=== PATIENT | female | born 1955 ===

== ENCOUNTER 2024-08-27 06:15 | Day surgery (SDC) | payer OTHER, SELFPAY ==
[2024-08-27 08:26] VITALS: BMI 25.9
[2024-08-27 08:29] VITALS: BMI 25.9
[2024-08-27 08:40] VITALS: BP 176/98
[2024-08-27 10:06] VITALS: BP 133/79
[2024-08-27 10:15] VITALS: BP 129/85
[2024-08-27 10:30] VITALS: BP 138/79
== END 2024-08-27 10:52 | disposition home or self-care (01) ==
LOC: GI 06:15
PROVIDERS: ATTENDING PHYSICIAN Internal Medicine Gastroenterology
DX: K86.2 Cyst of pancreas (principal)
CPT/HCPCS: 43242; 88173

== ENCOUNTER 2024-08-29 13:43 | Inpatient (IN) | payer OTHER, SELFPAY ==
[2024-08-27 15:55] VITALS: BP 159/108
--- NOTE | 2024-08-27 15:59 | ED.GENMED ---
ED Provider Triage
<Gloria Vences NP - Last Filed: 08/27/24 16:03>
-
Patient seen by provider in Triage?: Seen in Triage
Attestation: A medical screening examination has been initiated by a qualified medical provider. Based on the assessment performed at this time, it has been determined that an emergent medical condition may exist and the patient has been informed
that further medical evaluation and possible additional diagnostic testing may be needed.
HPI: 68-year-old female here for earlier abdominal pain 03/31, now 01/29
This 9 AM patient had an endoscopic ultrasound for cyst on her pancreas. Afterwards she felt fine but when she got home she developed mid abdominal pain. Feels bloated, states some of it feels muscular like I did 100 sit ups.
GENERAL: Alert , in no apparent distress
EYE: No visual abnormalities.
NECK: Trachea midline
ENT: No visible abnormalities.
LUNGS: No acute respiratory distress
NEUROLOGICAL: Alert and oriented
SKIN: Skin intact. No visible changes.
MUSCULOSKELETAL: Moving extremities normally
PSYCH: Normal and appropriate interaction.
This is a medical evaluation conducted in person to initiate diagnostic evaluation and provide initial therapeutics. Please see further documentation by the treating clinician.
History of Present Illness
<Gloria Vences STORE CLERK CASHIER - Last Filed: 08/27/24 16:03>
General
Chief Complaint: Abdominal Pain
Time Seen by Provider: 08/27/24 19:48
<BRENDA Shelby - Last Filed: 08/27/24 23:30>
General
Source: patient
Exam Limitations: none
History of Present Illness
History of Present Illness:
This is a 68 year old female that comes in with c/o abd pain. States that she has Endoscopic Ultrasound today to help decide what was going on with her Pancreas. States that she had good news. States that she eat crackers and went home. States that
she decided to have some dry cereal at lunch and when she did she started with cramping abd pain. Sates that at 2:30pm it felt like she had done 300 sit ups or like she had gas that she couldn't get rid off. States that her pain is about 4-5/10 at
this time. States that she was nauseated and mild dizziness when she first got home. Denies any fever, chills, chest pain, SOB, vomiting, diarrhea, headache, urinary burning.
Past History
<BRENDA Shelby - Last Filed: 08/27/24 23:30>
Past History
ED Past Medical History: HTN, Hypercholesterolemia and Other (Cyst on Pancreas. Barretts)
ED Past Surgical History: Tonsilectomy and Other (Cataracts, Breast Biopsy)
Social History
Tobacco: Non-smoker
Alcohol: Occasional
Personal:
Living: with family
Review of Systems
<BRENDA Shelby - Last Filed: 08/27/24 23:30>
Review of Systems
All Other Systems: ROS reviewed and negative except as documented in HPI and ROS
Constitutional: Reports no symptoms; Denies fever or chills
EENT: Reports no symptoms
Respiratory: Reports no symptoms; Denies cough or trouble breathing
Cardiac: Reports no symptoms; Denies chest pain
ABD/GI: Reports abdominal pain and nausea; Denies vomiting or diarrhea
: Reports no symptoms; Denies dysuria, frequency or urgency
Musculoskeletal: Reports no symptoms
Skin: Reports no symptoms
Neurological: Reports dizzy (Mild); Denies headache
Psychiatric: Reports no symptoms
Phy Exam
<BRENDA Shelby - Last Filed: 08/27/24 23:30>
General Physical Exam
General Presentation: well appearing and no apparent distress
General age: appears stated age
General Skin: warm and dry
General Habitus: normal
General Mental: alert
General Hydration: appears well hydrated
ENT Exam
ENT Exam: TM's normal, pharynx normal and neck supple
Eye Exam
Eye Exam: EOMI
Cardiovascular Exam
Cardiovascular Exam: regular rate/rhythm, no edema, no murmur and normal peripheral pulses
Pulmonary Exam
Pulmonary Exam: lungs clear, no respiratory distress, no rales, chest non tender, no crackles, no rhonchi, no wheezing and no cough
Gastrointestinal Exam
Gastrointestinal Exam: soft, no organomegaly, no pulsatile mass, non distended, tender (Epigastric and right upper quadrant with palpation) and other (Hypoactive bowel sounds)
Musculoskeletal Exam
Musculoskeletal Exam: full ROM and no edema
Skin Exam
Skin Exam: normal color, warm/dry, no rash and no petechia
Psychiatric Exam
Psychiatric Exam: normal mood/affect
Course
<Gloria Vences NP - Last Filed: 08/27/24 16:03>
Orders/Labs/Results
Orders:
Orders
08/27/24 16:07
Complete Blood Count/With Diff Urgent
Comprehensive Metabolic Panel Urgent
Lipase Urgent
08/27/24 20:01
CT Abd/pelvis W Iv Cont Urgent
Comment: Endoscopic US today
Reason For Exam: Upper abd pain,
0.9% Sodium Chloride 1000 ml [Nss] 1,000 ml IV BOLUS
08/27/24 20:21
Lactic Acid Urgent
08/27/24 23:23
HYDROmorphone [Dilaudid] 0.5 mg IV NOW STA
Ondansetron Injectable [Zofran] 4 mg IV NOW STA
Abnormal Lab Results
08/27/24
16:07
WBC 18.3 H 10^3/uL
(4.8-10.8)
MCH 31.1 H pg
(27.0-31.0)
Abs Immat Gran (auto) 0.1 H 10^3/uL
(0-0.05)
Absolute Neuts (auto) 15.6 H 10^3/uL
(1.4-6.5)
Absolute Monos (auto) 0.9 H 10^3/uL
(0.1-0.6)
Neutrophils % 85.4 H %
(42.2-75.2)
Lymphocytes % 8.7 L %
(20.5-51.1)
Carbon Dioxide 32 H mmol/L
(22-30)
BUN 20 H mg/dl
(7-17)
Glucose 114 H mg/dl
(70-99)
Lipase > 4000 H* U/L
(23-300)
08/27/24 16:07
08/27/24 16:07
Vital Signs
Initial and Last Documented VS:
Initial Vital Signs
Temp Pulse Resp BP Pulse Ox
98.2 F 116 16 159/108 97
08/27/24 15:55 08/27/24 15:55 08/27/24 15:55 08/27/24 15:55 08/27/24 15:55
Last Documented Vital Signs
Temp Pulse Resp BP Pulse Ox
98.2 F 110 18 145/89 97
08/27/24 15:55 08/27/24 23:00 08/27/24 23:00 08/27/24 23:00 08/27/24 23:00
<BRENDA Shelby - Last Filed: 08/27/24 23:30>
Orders/Labs/Results
Orders:
Orders
08/27/24 16:07
Complete Blood Count/With Diff Urgent
Comprehensive Metabolic Panel Urgent
Lipase Urgent
08/27/24 20:01
CT Abd/pelvis W Iv Cont Urgent
Comment: Endoscopic US today
Reason For Exam: Upper abd pain,
0.9% Sodium Chloride 1000 ml [Nss] 1,000 ml IV BOLUS
08/27/24 20:21
Lactic Acid Urgent
08/27/24 23:23
HYDROmorphone [Dilaudid] 0.5 mg IV NOW STA
Ondansetron Injectable [Zofran] 4 mg IV NOW STA
Abnormal Lab Results
08/27/24
16:07
WBC 18.3 H 10^3/uL
(4.8-10.8)
MCH 31.1 H pg
(27.0-31.0)
Abs Immat Gran (auto) 0.1 H 10^3/uL
(0-0.05)
Absolute Neuts (auto) 15.6 H 10^3/uL
(1.4-6.5)
Absolute Monos (auto) 0.9 H 10^3/uL
(0.1-0.6)
Neutrophils % 85.4 H %
(42.2-75.2)
Lymphocytes % 8.7 L %
(20.5-51.1)
Carbon Dioxide 32 H mmol/L
(22-30)
BUN 20 H mg/dl
(7-17)
Glucose 114 H mg/dl
(70-99)
Lipase > 4000 H* U/L
(23-300)
08/27/24 16:07
08/27/24 16:07
Leukocytosis, Dehydration. hyperglycemia. Lipase >4000
Vital Signs
Initial and Last Documented VS:
Initial Vital Signs
Temp Pulse Resp BP Pulse Ox
98.2 F 116 16 159/108 97
08/27/24 15:55 08/27/24 15:55 08/27/24 15:55 08/27/24 15:55 08/27/24 15:55
Last Documented Vital Signs
Temp Pulse Resp BP Pulse Ox
98.2 F 110 18 145/89 97
08/27/24 15:55 08/27/24 23:00 08/27/24 23:00 08/27/24 23:00 08/27/24 23:00
<BRENDA Shelby - Last Filed: 08/27/24 23:30>
MDM/Problems Addressed
Differential Diagnosis Includes:
Pancreatitis, Abd perforation
MDM/Problems Addressed:
This is a 68 year old female that comes in with c/o abd pain after having an Endoscopy US today to look at the Cyst on her Pancreas. States that she got good news. States that she started with abd pain after getting home.
Will get labs, CT scan.
Back into see patient. Explained that she has Pancreatitis. Will admit patient. Hospitalist notified.
Chronic conditions affecting care:
NA
Acute Exacerbation and/or Progression of Chronic Illness:
NA
<BRENDA Shelby - Last Filed: 08/27/24 23:30>
*Radiology
Radiology exam reviewed: radiology read reviewed (CT-Mild pancreatitis. Homogeneous pancreatic parencymal enhancement. 2.4cm cyst at the superior margin of the pancreatic head. There area a few tiny nonobstructing renal calculi, bilaterally. Few
small parapelvic cysts. No obstructing uropathy. Minor diverticulosis. NO evidence of acute ) and other (CT cont- diverticulitis. Mild colonic fecal burden. No evidence of bowel obstruction. Bibasilar atelectasis. )
*Pulse Oximetry
Patient hypoxic: no
*EKG
Interpreted by ED Provider?: NA
Rate: EKG- N/A
*Home School Liaison Officer Interpretation
Rate: Home School Liaison Officer- N/A
*Critical Care Note
Total Time (30-74mins, 75-104mins- exclusive of procedures): Not Applicable
ED Attending Note
<Gloria Vences STORE CLERK CASHIER - Last Filed: 08/27/24 16:03>
-
Portions of this chart may have been created with voice recognition software.� Occasional wrong word or��sound alike� substitutions may have occurred due to the inherent limitations of voice recognition software.
Discharge Plan
Departure
Patient Disposition: Admit
Date of Disposition: 08/27/24
Time of Disposition: 23:29
Admit to: Med/Surg
Presentation/result/management discussed w/ accepting MD/DO: Hospitalist
Patient with high blood pressure during this ER visit?: Yes
Condition: Good
Covid-19: Not Applicable
Discharge Problem:
Pancreatitis, acute
Prescriptions:
No Action
multivitamin Tablet
1 tab PO DAILY
calcium 600 mg Capsule
1,200 mg PO DAILY
valsartan 80 mg Tablet
80 mg PO DAILY
biotin 10,000 mcg Capsule
10,000 mcg PO DAILY
omeprazole 20 mg Capsule,Delayed Release(Dr/Ec)
20 mg PO DAILY
loratadine 10 mg Tablet
10 mg PO DAILY
omega 8-zzx-mpg-fish oil [Fish Oil] 1,000 (120-180) mg Capsule
1 cap PO DAILY
aspirin 81 mg Capsule
81 mg PO DAILY
Referrals:
Maria Chanrda DO [Family Provider] -
Interventions
Interventions:
*Risk Screen - Suicide Last Done: 08/27/24 20:41
*Neglect/Abuse Screening Last Done: 08/27/24 20:41
ED- Fall Risk Assessment Last Done: 08/27/24 20:41
*ED COVID-19 Vaccine History Last Done: 08/27/24 20:41
PZ-Yxmgai-Enpxbpjmxs Assessment Last Done: 08/27/24 20:38
Discharge Date and Time
Print Language: EMIRATI
[2024-08-27 16:14] LABS: % Basophils 0.4 % (0-2); % Eosinophils 0.4 % (0-6); % Immature Granulocytes 0.4 % (0-0.5); % Lymphocytes 8.7 % (20.5-51.1); % Monocytes 4.7 % (1.7-9.3); % Neutrophils 85.4 % (42.2-75.2); Absolute Basophils 0.1 10^3/uL (0-0.2); Absolute Eosinophils 0.1 10^3/uL (0-0.7); Absolute Immature Granulocytes 0.1 10^3/uL (0-0.05); Absolute Lymphocytes 1.6 10^3/uL (1.2-3.4); Absolute Monocytes 0.9 10^3/uL (0.1-0.6); Absolute Neutrophils 15.6 10^3/uL (1.4-6.5); Hematocrit 42.3 % (37.0-47.0); Hemoglobin 14.7 g/dL (12.0-16.0); Mean Corp Hgb Conc. 34.8 g/dL (33.0-37.0); Mean Corpuscular Hgb 31.1 pg (27.0-31.0); Mean Corpuscular Volume 89.6 fL (81.0-99.0); Mean Platelet Volume 9.2 fL (7.4-10.4); Nucleated Red Blood Cells % 0 %; Platelet Count 374 10^3/uL (130-400); Red Blood Cell Count 4.72 10^6/uL (4.20-5.40); Red Cell Dist. Width 11.9 % (11.5-14.5); White Blood Cell Count 18.3 10^3/uL (4.8-10.8)
[2024-08-27 16:34] LABS: ALT (SGPT) 26 U/L (0-35); AST (SGOT) 31 U/L (14-36); Albumin 4.7 g/dl (3.5-5.0); Alkaline Phosphatase 77 U/L (38-126); Blood Urea Nitrogen 20 mg/dl (7-17); Calcium 10.1 mg/dl (8.4-10.2); Carbon Dioxide 32 mmol/L (22-30); Chloride 102 mmol/L (98-107); Glucose 114 mg/dl (70-99); Potassium 4.1 mmol/L (3.5-5.1); Sodium 142 mmol/L (135-145); Total Bilirubin 0.6 mg/dl (0.2-1.3); Total Protein 7.3 g/dl (6.3-8.2); eGFR > 60.00
[2024-08-27 18:46] VITALS: BP 153/95
[2024-08-27 20:05] LABS: Lipase > 4000 U/L (23-300)
[2024-08-27] MEDS: NSS 1000 IV (20:30)
[2024-08-27 20:34] VITALS: BP 154/77
[2024-08-27 20:50] LABS: Lactic Acid 1.7 mmol/L (0.7-2.0)
[2024-08-27 23:00] VITALS: BP 145/89
[2024-08-27] MEDS: DILAUDID 0.5 MG IV (23:24)
[2024-08-27] MEDS: ZOFRAN 4 MG IV (23:24)
--- NOTE | 2024-08-28 00:04 | HPS.HSE ---
Family Physician
-
Family Physician: Maria Chandra
Chief Complaint
-
Acute abdominal pain
History of Present Illness
This is a 68-year-old female who has a past medical history of hypertension, GERD, recent diagnosis of IPMN status post EGD and EUS with fine-needle aspiration of pancreatic cyst today coming in with acute onset of epigastric abdominal pain at
around 1 PM.
Patient reported that she underwent the procedure without any issues in the morning. When she arrived home she attempted to eat a dry cereal and developed severe epigastric abdominal pain radiating to the back. She said the pain was a 7 out of 10.
She had nausea but no vomiting. She denies any diarrhea. Patient called physician who recommended she come to the emergency department. On arrival in the emergency department the pain was a 5 out of 10. She denies any alcohol use. She denies
history of gallstones. She denies any prior episodes of pancreatitis.
In the ED she was afebrile, blood pressure was stable and she was nontachycardic. She had leukocytosis to 18,000 but otherwise CBC was unremarkable. Her electrolytes BUN/creatinine were within normal limits. Lipase was elevated at over 4000.
LFTs were within normal limits. CT of the abdomen pelvis showed mild pancreatitis, 2.4 cm cyst around the head of the pancreas. Otherwise no peripancreatic fluids. No other acute findings.
Medical History
Past Medical History
Past Medical History: Reports GERD and HTN
Additional Past Medical History:
Pancreatic IPMN
Past Surgical History: Reports None
Social History
Tobacco: Non-smoker
Alcohol: Occasional
Drug: None
Personal:
Living: With Family
Employment: Retired
Family History
Family History: Not pertinent
Allergies / Home Medications
Allergies reflects when Allergies were last updated in [employer].
Home Medications with original date entered in [employer]
Allergy/Medication List:
Allergies
Allergy/AdvReac Type Severity Reaction Status Date / Time
No Known Allergies Allergy Unverified 08/27/24 08:29
Home Medications
aspirin 81 mg capsule 81 mg PO DAILY 08/27/24
biotin 10,000 mcg capsule 10,000 mcg PO DAILY 08/27/24
calcium carbonate (Calcium 600) 1,200 mg PO DAILY 08/27/24
loratadine 10 mg tablet 10 mg PO DAILY 08/27/24
multivitamin 1 tab PO DAILY 08/27/24
omega 6-vmu-sxu-fish oil 1,000 mg (120 mg-180 mg) capsule (Fish Oil) 1 cap PO DAILY 08/27/24
omeprazole 20 mg capsule,delayed release 20 mg PO DAILY 08/27/24
valsartan 80 mg tablet 80 mg PO DAILY 08/27/24
Review of Systems
-
History Source: Patient
Constitutional: Reports No Symptoms
EENT: Reports No Symptoms
Respiratory: Reports No Symptoms
Abdomen/GI: Reports Abdominal Pain
: Reports No Symptoms
Musculoskeletal: Reports No Symptoms
Skin: Reports No Symptoms
Neurological: Reports No Symptoms
Endocrine: Reports No Symptoms
Hematologic/Lymphatic: Reports No Symptoms
Psych: Reports No Symptoms
Physical Exam
Vital Signs
Vital Signs
Temp Pulse Resp BP Pulse Ox
98.2 F 110 18 145/89 97
08/27/24 15:55 08/27/24 23:00 08/27/24 23:00 08/27/24 23:00 08/27/24 23:00
Physical Exam
General: Well Developed, Well Nourished, Comfortable and Conversant
HEENT: NormoCephalic, Anicteric, Moist mucous membranes and Atraumatic
Respiratory: Clear
Cardiac: S1/S2 and Regular Rhythm
GI: Soft, Non Distended, Normal Bowel Sounds and Tender
Rectal: Deferred by Provider
Genito-urinary: Deferred by me
Musculoskeletal: No Clubbing, No Cyanosis and No Edema
Skin: Warm and Dry
Neuro: AO x 3
Hematologic/Lymphatic: No Lymphadenopathy
Psych: Calm
Laboratory Results
-
08/27/24 16:07
08/27/24 16:07
Laboratory Results
Lactic Acid 1.7 mmol/L (0.7-2.0) 08/27/24 20:21
Total Bilirubin 0.6 mg/dl (0.2-1.3) 08/27/24 16:07
AST 31 U/L (14-36) 08/27/24 16:07
ALT 26 U/L (0-35) 08/27/24 16:07
Alkaline Phosphatase 77 U/L (38-126) 08/27/24 16:07
Lipase > 4000 U/L (23-300) H* 08/27/24 16:07
Data Reviewed
-
CT Scan: Report Reviewed by me
Lab Data: Labs Reviewed by me
Old Records: Reviewed
Impression/Plan
-
IMPRESSION:
Patient with history of IPMN and pancreatic cyst who underwent EGD and EUS status post fine-needle aspiration of the pancreatic cyst presents to the emergency department status post procedure with acute episode of epigastric pain occurring after
attempted oral intake at home. Found to have a lipase of over 5000. LFTs within normal limits. Labs otherwise unremarkable except for leukocytosis to 18,000. CT scan of the abdomen pelvis showed mild pancreatitis
PLAN:
1. Post EUS pancreatitis - HD stable and non-toxic appearing. Leukocytosis
- admit to med/surg observation
- npo for now
- iv fluids, pain control and antiemetics
- continue cipro as prescribed s/p procedure 250mg bid, iv for now
- given s/p procedure and leukocytosis, will get GI consultation
- continue ppi as iv for now
2. HTN
- continue valsartan
DVT PPX - lovenox sq
Code status - Full Code
[2024-08-28 01:20] VITALS: BP 143/79; BMI 26.2
[2024-08-28] MEDS: LR 1000 IV ×3 (01:39→21:25)
[2024-08-28] MEDS: DILAUDID 0.5 MG IV ×2 (03:38→08:41)
[2024-08-28 07:30] VITALS: BP 108/60
[2024-08-28 07:38] LABS: Hematocrit 36.7 % (37.0-47.0); Hemoglobin 12.3 g/dL (12.0-16.0); Mean Corp Hgb Conc. 33.5 g/dL (33.0-37.0); Mean Corpuscular Hgb 30.9 pg (27.0-31.0); Mean Corpuscular Volume 92.2 fL (81.0-99.0); Mean Platelet Volume 9.4 fL (7.4-10.4); Platelet Count 315 10^3/uL (130-400); Red Blood Cell Count 3.98 10^6/uL (4.20-5.40); Red Cell Dist. Width 11.9 % (11.5-14.5); White Blood Cell Count 11.9 10^3/uL (4.8-10.8)
[2024-08-28 07:43] LABS: Blood Urea Nitrogen 16 mg/dl (7-17); Carbon Dioxide 27 mmol/L (22-30); Chloride 106 mmol/L (98-107); Estimated Creatinine Clearance 48 ml/min; Glucose 114 mg/dl (70-99); Potassium 3.9 mmol/L (3.5-5.1); Sodium 142 mmol/L (135-145); eGFR > 60.00
--- NOTE | 2024-08-28 08:36 | CON.GI ---
Consultation
-
Date/Time Consultation Requested: 08/28/24
Date/Time Consultation Performed: 08/28/24
Requesting Provider:
Performing Provider:
Reason for Consultation: post EUS pancreatitis
Medical History
Chief Complaint / HPI
Chief Complaint: epigastric pain
History of Present Illness:
This is a 68-year-old female with past medical history of GERD with reflux esophagitis, Arias's esophagus, colon polyps, pancreatic cyst, hypertension who follows up with Dr. Fer [place] at [facility] was referred to Dr. Rubio for an incidental
finding of pancreatic cyst. She says that she was getting CAT scan for follow-up after pneumonia and was noted to have a pancreatic cyst and was referred for EUS which she underwent yesterday with Dr. Rubio EUS with FNA and felt okay after the
procedure but when she went home she tried to eat some dry cereal and started having epigastric pain with nausea and presented to the emergency room and was noted to have normal LFTs but her lipase was greater than 4000 and was admitted for post EUS
pancreatitis. Today her pain is slightly improved no vomiting no fever. She usually has regular bowel movements no rectal bleeding or melena. Her reflux is pretty well-controlled on omeprazole 20 mg daily her last endoscopy was in March and her
last colonoscopy was in 2022 in [place].
Past Medical History
Past Medical History: Other (GERD, barretts, pancreatic cyst, colon polyps, HTN, PNA)
Past Surgical History: Other (none)
Social History
Tobacco: Non-Smoker
Alcohol: Occasional
Drug: None
Personal:
Living: With Family
Employment: Retired
Family History
Family History: Other (mom and dad - colon polyps, no FH of colon or pancreatic cancer)
Allergies / Home Medications
Allergy/AdvReac Type Severity Reaction Status Date / Time
No Known Allergies Allergy Unverified 08/27/24 08:29
�Medication �Instructions �Recorded
aspirin 81 mg capsule 81 mg PO DAILY 08/27/24
biotin 10,000 mcg capsule 10,000 mcg PO DAILY 08/27/24
calcium carbonate (Calcium 600) 1,200 mg PO DAILY 08/27/24
loratadine 10 mg tablet 10 mg PO DAILY 08/27/24
multivitamin 1 tab PO DAILY 08/27/24
omega 2-qak-gfc-fish oil 1,000 mg 1 cap PO DAILY 08/27/24
(120 mg-180 mg) capsule (Fish Oil)
omeprazole 20 mg capsule,delayed 20 mg PO DAILY 08/27/24
release
valsartan 80 mg tablet 80 mg PO DAILY 08/27/24
Review of Systems
-
All other systems: A 12 pt ROS was Negative except as stated above in HPI
Vital Signs
Temp Pulse Resp BP Pulse Ox
99.0 F 110 20 143/79 94
08/28/24 01:20 08/28/24 01:20 08/28/24 01:20 08/28/24 01:20 08/28/24 01:20
Physical Exam
Exam
General: No Apparent Distress
HEENT: Normocephalic
Respiratory: Clear
Cardiac: S1/S2 and Regular Rhythm
GI: Soft, Non Distended, Normal Bowel Sounds and Tender (epigastric)
Musculoskeletal: No Clubbing
Neuro: Awake, Alert and Oriented
Psych: Calm
Results
WBC 11.9 10^3/uL (4.8-10.8) H 08/28/24 06:52
Hgb 12.3 g/dL (12.0-16.0) 08/28/24 06:52
Hct 36.7 % (37.0-47.0) L 08/28/24 06:52
MCV 92.2 fL (81.0-99.0) 08/28/24 06:52
Plt Count 315 10^3/uL (130-400) 08/28/24 06:52
Absolute Neuts (auto) 15.6 10^3/uL (1.4-6.5) H 08/27/24 16:07
Sodium 142 mmol/L (135-145) 08/28/24 06:52
Potassium 3.9 mmol/L (3.5-5.1) 08/28/24 06:52
Chloride 106 mmol/L (98-107) 08/28/24 06:52
Carbon Dioxide 27 mmol/L (22-30) 08/28/24 06:52
BUN 16 mg/dl (7-17) 08/28/24 06:52
Creatinine 0.9 mg/dL (0.6-1.0) 08/28/24 06:52
Calcium 9.0 mg/dl (8.4-10.2) 08/28/24 06:52
Total Bilirubin 0.6 mg/dl (0.2-1.3) 08/27/24 16:07
AST 31 U/L (14-36) 08/27/24 16:07
ALT 26 U/L (0-35) 08/27/24 16:07
Alkaline Phosphatase 77 U/L (38-126) 08/27/24 16:07
Lipase > 4000 U/L (23-300) H* 08/27/24 16:07
Diagnostic Image Results:
08/27/24 CT IMPRESSION:
Mild pancreatitis. Homogeneous pancreatic parenchymal enhancement.
2.4 cm cyst at the superior margin of the pancreatic head.
There are a few tiny nonobstructing renal calculi, bilaterally. Few small parapelvic cysts. No obstructive uropathy.
Minor diverticulosis. No evidence of acute diverticulitis. Mild colonic fecal burden. No evidence of bowel obstruction.
Bibasilar atelectasis.
Prior GI Procedures:
EGD: March 2024 [place] Barretts per patient
Colonoscopy: 2022 colon polyps per patient
08/27/24 EUS
Impression: - A cystic lesion was seen in the pancreatic body.
Fine needle aspiration for fluid performed.
- There was no sign of significant pathology in the
pancreatic head.
- There was no sign of significant pathology in the
common bile duct.
- There was no sign of significant pathology in the
ampulla.
- There was no evidence of significant pathology in
the left lobe of the liver.
Assessment / Plan
-
1. Post EUS pancreatitis improving on IV fluids she is tachycardic will increase the rate and follow-up on labs. As described above she had a pancreatic cyst and had EUS with FNA yesterday will follow-up on results and she was recommended repeat
MRI in 1 year with her GI [address]. Monroe at [place] and she will follow-up with Dr. Rubio also. If her pain improves tomorrow we can advance diet will start clear liquids today
2. GERD with esophagitis and Arias's esophagus continue PPI
3. History of colon polyps last colonoscopy was in 2022 and needs repeat in 2027 will follow-up with her GI at [facility] at [place] Dr. Monroe
-
-
Thank you for consultation and allowing me to participate in the patient's care. Please call the design consultant GI physician during the after hours with any questions or concerns.
[2024-08-28] MEDS: PROTONIX IV 40 MG IV (09:47)
[2024-08-28] MEDS: DIOVAN 80 MG PO (09:47)
[2024-08-28] MEDS: NSS (PRESERVATIVE FREE) 10 ML IV (09:48)
[2024-08-28 10:01] LABS: Lipase 2909 U/L (23-300)
[2024-08-28] MEDS: CIPRO 200 MG 100 IV ×2 (10:42→21:25)
[2024-08-28] MEDS: ROXICODONE 5 MG PO ×2 (14:09→22:44)
[2024-08-28 15:55] VITALS: BP 123/70
--- NOTE | 2024-08-28 16:43 | CM ---
Patient under Observation status. Patient upset about observation status and did not agree to sign the Observation letter. Left letter in her room.
SHe will discuss observation with attending tomorrow.
SHe [facility] 3 steps in. Half bath on first floor. UP 13 steps to full bathroom and bedroom.
SHe does not own any DME . NO history of SNF, VNA .
PCP Dr. Maria Zamora
Pharmacy [facility] [address]
PLAN: home no needs.
[2024-08-28] MEDS: LOVENOX 40 MG SC (18:08)
[2024-08-28 23:30] VITALS: BP 117/58
[2024-08-29] MEDS: LR 1000 IV ×2 (05:53→14:12)
[2024-08-29] MEDS: NSS (PRESERVATIVE FREE) 10 ML IV (07:31)
[2024-08-29] MEDS: ROXICODONE 5 MG PO ×3 (07:31→23:25)
[2024-08-29] MEDS: PROTONIX IV 40 MG IV (07:31)
[2024-08-29] MEDS: DIOVAN 80 MG PO (07:40)
[2024-08-29 07:55] VITALS: BP 135/90
[2024-08-29 08:19] LABS: ALT (SGPT) 18 U/L (0-35); AST (SGOT) 25 U/L (14-36); Albumin 3.4 g/dl (3.5-5.0); Alkaline Phosphatase 69 U/L (38-126); Blood Urea Nitrogen 11 mg/dl (7-17); Calcium 8.8 mg/dl (8.4-10.2); Carbon Dioxide 29 mmol/L (22-30); Chloride 102 mmol/L (98-107); Estimated Creatinine Clearance 62 ml/min; Glucose 91 mg/dl (70-99); Lipase 464 U/L (23-300); Potassium 3.5 mmol/L (3.5-5.1); Sodium 137 mmol/L (135-145); Total Bilirubin 1.1 mg/dl (0.2-1.3); Total Protein 5.7 g/dl (6.3-8.2); eGFR > 60.00
[2024-08-29] MEDS: CIPRO 200 MG 100 IV ×2 (09:55→21:34)
--- NOTE | 2024-08-29 12:17 | W.PN.GI.CBS2 ---
Today's Communication / Plan
-
low fat diet
decrease IVF
Assessment / Plan
-
1. Post EUS pancreatitis she had a pancreatic cyst and had EUS with FNA 08/27 with and she was recommended repeat MRI in 1 year with her GI Dr. Marquez at [place] and she will follow-up with Dr. Rubio also. Will decrease the rate of IV fluids
and start on low-fat diet and if tolerates possible DC tomorrow. LFTs are normal lipase is trending down
2. GERD with esophagitis and Arias's esophagus continue PPI
3. History of colon polyps last colonoscopy was in 2022 and needs repeat in 2027 will follow-up with her GI at [facility] at [place] Dr. Marquez
Subjective
Subjective
Date of Service: August 29, 2024
Pain is improved no nausea vomiting, afebrile, lipase is trending down LFTs are normal WBCs also trending down,
Objective
Data Reviewed
Laboratory Data:
Laboratory Results
08/28/24 06:52
08/29/24 06:51
Laboratory Results
Total Bilirubin 1.1 mg/dl (0.2-1.3) 08/29/24 06:51
AST 25 U/L (14-36) 08/29/24 06:51
ALT 18 U/L (0-35) 08/29/24 06:51
Alkaline Phosphatase 69 U/L (38-126) 08/29/24 06:51
Lipase 464 U/L (23-300) H 08/29/24 06:51
Vital Signs and I&O:
Vital Signs
Temp Pulse Resp BP Pulse Ox
97.8 F 111 16 135/90 92
08/29/24 07:55 08/29/24 07:55 08/29/24 07:55 08/29/24 07:55 08/29/24 07:55
I&O
12/04/1408/29/24 08/30/24
06:59 06:59 06:59
Intake Total 120 / 120 570 / 570
Balance 120 / 120 570 / 570
Physical Exam
Physical Exam
Cardiology: Normal Sinus Rhythm
Pulmonary: Clear
GI: Soft, Non Distended, Tender (Mild epigastric tenderness) and Normal Bowel Sounds
--- NOTE | 2024-08-29 13:31 | W.PN.HOSP.TC ---
Today's Communication/Plan
-
Assessment / Plan
Assessment / Plan
Physical Exam
NAD, resting comfortably in bed
Scleral anicteric
Moist mucous membranes
No JVD
CTA bilateral
Normal S1-S2 no murmurs
Soft epigaastric ttp nondistended bowel sounds active
No peripheral pitting edema
Moves extremities spontaneously
AAOx3
Acute pancreatitis secodnary to EUS with bx
-IVF
-Advance diet
-IV analgices
Pancreatic Cyst
-FOllow up with outpt GI and Advanced GI for bx review
GERD
-continue ppi
HTN
-continue ARB
Anticipated Discharge: 24 - 48 hours
Subjective/Interval History
-
Date of Service: August 29, 2024
seen and examined. no new complaints. no acute overnight events
asking for advanced diet
started that she had a rough AM due to some epigastric discomfort.
Objective Data
-
Labs:
Laboratory Results
08/29/24
06:51
Sodium 137
Potassium 3.5
Chloride 102
Carbon Dioxide 29
BUN 11
Creatinine 0.7
Glucose 91
Calcium 8.8
Total Bilirubin 1.1
AST 25
ALT 18
Alkaline Phosphatase 69
Vital Signs:
Vital Signs
Temp Pulse Resp BP Pulse Ox
97.8 F 111 16 135/90 92
08/29/24 07:55 08/29/24 07:55 08/29/24 07:55 08/29/24 07:55 08/29/24 07:55
I&O
08/28/24 08/29/24 08/30/24
06:59 06:59 06:59
Intake Total 120 / 120 570 / 570
Balance 120 / 120 570 / 570
[2024-08-29 15:30] VITALS: BP 152/68
[2024-08-29] MEDS: LOVENOX 40 MG SC (17:39)
[2024-08-29] MEDS: TYLENOL 650 MG PO (20:34)
[2024-08-29 23:12] VITALS: BP 132/77
[2024-08-30] MEDS: LR 1000 IV (01:53)
[2024-08-30 07:02] VITALS: BP 153/81
[2024-08-30] MEDS: ROXICODONE 5 MG PO ×2 (08:42→13:17)
--- NOTE | 2024-08-30 08:43 | W.PN.HOSP.TC ---
Today's Communication/Plan
-
D/C Cipro
UA with reflex culture
Continue pain management
Reduce IVF rate to 80cc/hr
If tolerating diet, can be discharged
Assessment / Plan
Assessment / Plan
68-year-old female with epigastric pain and nausea following EUS on 08/27. Lipase was greater than 4000 in ED.
Chronic conditions prior to admission
GERD with reflux esophagitis
Arias's esophagus
Colon polyps
Pancreatic cyst
Hypertension
# Acute pancreatitis post EUS with FNA (performed on 08/27)
-IV treatment with lactated Ringer currently running at 100 cc/h-can reduce rate to 80 cc/hr
-Diet advanced to low-fat yesterday-patient only had small portion of food due to low appetite but no vomiting/nausea
-Pain management currently only with oxycodone-has received 20 mg during the past 24 hours
-D/C ciprofloxacin
# Pancreatic Cyst
- Pathology pending
- Repeat MRI in [address] Marquez at [place] and she will also follow-up with Dr. Rubio as OP
# GERD
- Controlled
- Continue pantoprazole
# Urinary frequency/urgency
-Send U/A with reflex culture
# History of HTN
- Controlled
- Continue valsartan
# DVT prophylaxis
-Lovenox 40 HS
Anticipated Discharge: Within 24 hours
Subjective/Interval History
-
Date of Service: August 30, 2024
Patient complains of not having a good night sleep because of urine urgency/frequency. Also mentions her epigastric pain is worse than before since since being off Dilaudid and only on oxycodone. Could tolerate a diet but only had a small portion
because of low appetite. Denies dysuria. Denies any fevers or chills. Denies vomiting.
Objective Data
-
Vital Signs:
Vital Signs
Temp Pulse Resp BP Pulse Ox
98.5 F 112 16 153/81 92
08/30/24 07:02 08/30/24 07:02 08/30/24 07:02 08/30/24 07:02 08/30/24 07:02
I&O
08/29/24 08/30/24 08/31/24
06:59 06:59 06:59
Intake Total 570 / 570 2765 / 2765
Balance 570 / 570 1555 / 2765
Review of Systems
-
History Source: Patient
All other systems: Reviewed and negative
Constitutional: Reports No Appetite (Appetite is decreased) and Sleep Disturbance (Could not have a good sleep due to urine urgency/frequency, and abdominal discomfort)
Abdomen/GI: Reports Abdominal Pain (Generalized pain in the abdominal as well as back pain), Nausea (Slightly nauseous), Vomiting (Negative) and Constipated (Has not had any bowel movement since admission)
Genitourinary: Reports Dysuria (Negative), Frequency, Urgency and Dark Urine (Negative)
Physical Exam
-
General: Well Developed, Comfortable and Pain
HEENT: Normocephalic, Moist Mucous Membranes and Anicteric
Respiratory: Clear to Auscultation
Cardiac: Regular Rhythm and S1/S2
GI: Soft, Nontender, Normal Bowel Sounds and Distended
Genito-urinary: No Costovertebral Tender
Musculoskeletal: No Clubbing, No Cyanosis and No Edema
Skin: Warm and Dry
Neuro: Awake, Alert and Oriented
[2024-08-30] MEDS: DIOVAN 80 MG PO (10:00)
[2024-08-30] MEDS: PROTONIX IV 40 MG IV (10:01)
[2024-08-30] MEDS: NSS (PRESERVATIVE FREE) 10 ML IV (10:01)
[2024-08-30] MEDS: CIPRO 200 MG 100 IV (10:02)
--- NOTE | 2024-08-30 10:17 | W.PN.GI.CBS2 ---
Today's Communication / Plan
-
Miralax and senna
OK to DC home
Assessment / Plan
-
1. Post EUS pancreatitis she had a pancreatic cyst and had EUS with FNA 08/27 with and she was recommended repeat MRI in 1 year with her GI Dr[address] Marquez at [place] and she will follow-up with Dr. Rubio also. Dc IVF, on low-fat diet. LFTs are
normal lipase is trending down. OK for DC today.
2. GERD with esophagitis and Arias's esophagus continue PPI
3. History of colon polyps last colonoscopy was in 2022 and needs repeat in 2027 will follow-up with her GI at [facility] at [place] Dr. Marquez
4. Constipation from opiates will start Miralax and senna
Subjective
Subjective
Date of Service: August 30, 2024
Pain is improved but still requiring pain medications she is tolerating small amounts of low-fat diet
No BM yet passing flatus
Objective
Data Reviewed
Laboratory Data:
Laboratory Results
Total Bilirubin 1.1 mg/dl (0.2-1.3) 08/29/24 06:51
AST 25 U/L (14-36) 08/29/24 06:51
ALT 18 U/L (0-35) 08/29/24 06:51
Alkaline Phosphatase 69 U/L (38-126) 08/29/24 06:51
Lipase 464 U/L (23-300) H 08/29/24 06:51
Vital Signs and I&O:
Vital Signs
Temp Pulse Resp BP Pulse Ox
98.5 F 110 16 153/81 92
08/30/24 07:02 08/30/24 10:00 08/30/24 07:02 08/30/24 07:02 08/30/24 07:02
I&O
08/29/24 08/30/24 08/31/24
06:59 06:59 06:59
Intake Total 570 / 570 2765 / 2765
Balance 570 / 570 2765 / 2765
Physical Exam
Physical Exam
Cardiology: Normal Sinus Rhythm
Pulmonary: Clear
GI: Soft, Non Distended, Tender ( mild epigastric tenderness) and Normal Bowel Sounds
[2024-08-30 10:19] LABS: Hematocrit 35.1 % (37.0-47.0); Hemoglobin 11.7 g/dL (12.0-16.0); Mean Corp Hgb Conc. 33.3 g/dL (33.0-37.0); Mean Corpuscular Volume 92.9 fL (81.0-99.0); Mean Platelet Volume 10.4 fL (7.4-10.4); Platelet Count 249 10^3/uL (130-400); Red Blood Cell Count 3.78 10^6/uL (4.20-5.40)
[2024-08-30 10:29] LABS: Urine Albumin Trace (Neg - Trace); Urine Bilirubin Negative (Negative); Urine Character Clear (Clear); Urine Color Yellow; Urine Glucose Negative (Negative); Urine Ketone 3+ (Negative); Urine Leukocyte Negative (Negative); Urine Nitrite Negative (Negative); Urine Occult Blood 3+ (Negative); Urine Urobilinogen Negative (Neg - 1+)
[2024-08-30 10:30] LABS: Blood Urea Nitrogen 8 mg/dl (7-17); Calcium 8.7 mg/dl (8.4-10.2); Carbon Dioxide 27 mmol/L (22-30); Chloride 102 mmol/L (98-107); Estimated Creatinine Clearance 73 ml/min; Glucose 91 mg/dl (70-99); Lipase 75 U/L (23-300); Potassium 3.4 mmol/L (3.5-5.1); Sodium 137 mmol/L (135-145); eGFR > 60.00
[2024-08-30] MEDS: LR IV (10:48)
[2024-08-30 10:49] LABS: Urine White Cell 0-2 /HPF (0-5)
--- NOTE | 2024-08-30 11:19 | W.PN.UPDATE ---
Update Note
Progress Note Update
I saw and evaluated the patient. I reviewed the resident�s note and agree with findings and plan as documented in the resident�s note.
Tolerated low-fat diet.
Gen: NAD, AAOx3.
Eyes: EOMI, PERRLA, no scleral icterus.
Neck: supple.
CV: RRR, +S1/S2, no m/r/g.
Resp: CTAB, no rales, wheezes, or rhonchi.
Abd: +BS, soft, NT, ND
Skin: No rashes.
Neuro: CN 2-12 intact, non-focal.
Psych: Normal mood and affect.
Acute pancreatitis due to EUS with bx:
-s/p IVF
-diet advanced to low fat
-lipase has normalized, LFTs normal
-cleared for d/c by GI
Other problems:
Pancreatic Cyst: f/u with GI as outpt to follow path
GERD: cont PPI
Hypokalemia: PO K
Essential HTN: cont ARB
Medically cleared for discharge.
Total time spent on d/c = 31 min. This included today's physical exam, progress note, review of laboratory and diagnostic data, preparation of discharge documents and prescriptions, and discussions about the pt's hospital course and discharge plan
with the patient and other family practice medical doctor involved in the patient's care.
[2024-08-30] MEDS: SENNA SYRUP 8.8 MG PO (11:35)
[2024-08-30] MEDS: MIRALAX 17 GRAMS PO (11:36)
--- NOTE | 2024-08-30 13:37 | CM ---
CM met with Kamini prior to discharge to provide IMM due to change to IP status. Signed form placed in chart and copy provided to pt.
Kamini is glad to be going home so she can rest in her own bed.
Plan: Kamini will return home today with no needs. Her daughter will provide transport home.
--- NOTE | 2024-08-30 13:39 | W.DCSUMMARY ---
Addendum entered and electronically signed by Houston Mario MD 08/30/24 14:47:
Read, reviewed, and agree. See same day progress note for additional details.
Original Note:
Discharge Summary
Discharge Data
Date of Admission: 08/29/24
Date of Discharge: 08/30/24
-
Pending Results: Yes
Additional Pending Results:
Pathology/biopsy of pancreatic cyst
Hospital Course
68-year-old female with past medical history of GERD with reflux esophagitis, Arias's esophagus, colon polyps, and essential hypertension who underwent EUS with FNA on 08/27 for evaluation of an incidentally-found pancreatic cyst. Patient was
initially DC'd to home on Ciprofloxacin on 08/27 but few hours later she developed epigastric pain, abdominal distention and nausea. Initial labs in ED showed lipase > 4000 and leukocytosis (wbc=18.3). Rest of labs including LFTs were normal.
Abdominal/pelvic CT scan was performed with patient in the ED with the following result:
Abd/pelvis CT w IV contrast (08/27):
Mild pancreatitis. Homogeneous pancreatic parenchymal enhancement.
2.4 cm cyst at the superior margin of the pancreatic head.There are a few tiny nonobstructing renal calculi, bilaterally. Few small parapelvic cysts. No obstructive uropathy.Minor diverticulosis. No evidence of acute diverticulitis. Mild colonic
fecal burden. No evidence of bowel obstruction.Bibasilar atelectasis.
Patient was admitted for management of acute pancreatitis post-EUS. GI was consulted and visited patient daily. Initially, she was made n.p.o. and received IV fluid treatment with lactated Ringer. Pain was controlled with Dilaudid and oxycodone and
Tylenol as needed. Cipro was continued to complete the 3-day course. During course of admission, patient's abdominal pain improved and nausea resolved. Also, lipase and white cell count trended down. Diet was gradually advanced. She remained
afebrile and hemodynamically stable while admitted.
Patient's chronic conditions including GERD and hypertension were managed and treated with home meds as prior to admission.
Today patient was able to tolerate low-fat diet without any nausea or vomiting. Pain has improved compared to before admission. Lipase is within normal limits today.
GI has cleared patient for discharge. Patient is medically stable for discharge to home. She has been advised to follow-up with her PCP in 1 week.
Discharge Plan
-
Patient Disposition: Home (Routine Discharge)
Discharge Diagnosis/Procedures: Acute pancreatitis following endoscopic ultrasound with biopsy
Condition: Good
Diet: Low Fat and Low Cholesterol
Activity: As tolerated
Driving Restrictions: As prior to admission
Bathing Restrictions: None
Instructions: Acute pancreatitis
Referrals:
Maria Chandra DO [Family Provider] - in less than 1 week
Prescriptions:
New
polyethylene glycol 3350 17 gram Powder In Packet
17 g PO DAILY 14 Days Qty: 14 0RF
sennosides 8.8 mg/5 mL Syrup
8.8 mg PO BID Qty: 120 0RF
acetaminophen 325 mg Tablet
650 mg PO Q4HPRN PRN (Reason: mild pain/MARIEE/temp> 100.4F) 14 Days Qty: 14 0RF
oxycodone 5 mg capsule
5 mg PO Q4H PRN (Reason: severe pain) Qty: 7 0RF
Continued
multivitamin Tablet
1 tab PO DAILY
valsartan 80 mg Tablet
80 mg PO DAILY
biotin 10,000 mcg Capsule
10,000 mcg PO DAILY
omeprazole 20 mg Capsule,Delayed Release(Dr/Ec)
20 mg PO DAILY
loratadine 10 mg Tablet
10 mg PO DAILY
omega 1-ilr-byz-fish oil [Fish Oil] 1,000 (120-180) mg Capsule
1 cap PO DAILY
aspirin 81 mg Capsule
81 mg PO DAILY
calcium carbonate [Calcium 600] 600 mg calcium (1,500 mg) Tablet
1,200 mg PO DAILY
Discharge Orders:
Discharge Patient (As Directed); Ordered 08/30/24
Ordered By: Houston Mario
Discharge Date and Time
Print Language: [place]
[2024-08-30 19:16] LABS: Hepatitis C Antibody Negative (Negative)
== END 2024-08-30 15:02 | disposition home or self-care (01) | DRG 393 ==
LOC: 4 EAST ACU 13:43
PROVIDERS: Clinical Nurse Specialist Family Health; Registered Nurse; ADMITTING PHYSICIAN Internal Medicine; ATTENDING PHYSICIAN Internal Medicine; CONSULT PHYSICIAN Internal Medicine Gastroenterology; EMERGENCY PHYSICIAN Emergency Medicine; FAMILY PHYSICIAN Family Medicine
DX: K91.89 Other postprocedural complications and disorders of digestive system (principal); K85.80 Other acute pancreatitis without necrosis or infection; K86.2 Cyst of pancreas; I10 Essential (primary) hypertension; E78.00 Pure hypercholesterolemia, unspecified; K21.00 Gastro-esophageal reflux disease with esophagitis, without bleeding; K22.70 Barrett's esophagus without dysplasia; R35.0 Frequency of micturition; R39.15 Urgency of urination; Z79.82 Long term (current) use of aspirin; Y84.8 Other medical procedures as the cause of abnormal reaction of the patient, or of later complication, without mention of misadventure at the time of the procedure
CPT/HCPCS: 88173; 74177; 80048; 80053; 81003; 81015; 83605; 83690; 85025; 85027; 86803; 93005; 96361; 96374; 96375; 99284; Q9967